=== PATIENT | female | born 1990 | race Caucasian/White ===

== ENCOUNTER 2022-03-23 18:27 | Inpatient (IN) | payer BC ==
[~2022-03-23 18:27] MED LIST: Bupivacaine 0.25% HCL 30 ML VIAL ONE; Bupivacaine HCl 0.5%/Epinephrine 1:200,000/PF 30 ml Vial ONE
[2022-03-23 19:06] VITALS: BMI 35.0
[2022-03-23] MEDS ORDERED: Misoprostol 100 MCG TAB ONE (20:12)
[2022-03-23] MEDS: Misoprostol 100 MCG TAB PO SCH (20:15)
[2022-03-23] MEDS ORDERED: Ibuprofen 800 MG TAB PO PRN (21:04)
[2022-03-23] MEDS ORDERED: Promethazine HCl 25 MG/ML VIAL IM PRN ×2 (21:04→23:41)
[2022-03-23] MEDS ORDERED: Lidocaine 1% (PF) 30 ML VIAL SC PRN (21:04)
[2022-03-23] MEDS ORDERED: Misoprostol 200 MCG TAB PR PRN (21:04)
[2022-03-23] MEDS ORDERED: HYDROcodone/Acetaminophen 5/325 mg Tablet PO PRN ×2 (21:04)
[2022-03-23] MEDS ORDERED: Methylergonovine 0.2 MG/ML VIAL IM PRN (21:04)
[2022-03-23] MEDS ORDERED: hydrALAZINE 20 MG/ML VIAL SLOW IVP PRN (21:04)
[2022-03-23] MEDS ORDERED: Ondansetron PF 4 MG/2 ML Vial IVP PRN ×2 (21:04→23:41)
[2022-03-23] MEDS ORDERED: NS w/ Oxytocin 30 units 500 ML IV SCH (21:15)
[2022-03-23] MEDS ORDERED: Lactated Ringer's 1,000 ML IV SCH (21:15)
[2022-03-23 21:23] LABS: Hemoglobin 12.2 g/dL (12.0-15.5); Mean Corpuscular HGB CONC 33.8 g/dL (32.0-36.0); Mean Corpuscular Hemoglobin 27.7 pg (27.0-33.0); Mean Platelet Volume 12.8 fl (7.4-10.4); Platelet Count 282 10x3/uL (150-450); RBC Distribution Width 14.9 % (11.5-14.5); White Blood Cell (WBC) Count 10.9 10x3/uL (3.5-10.5)
[2022-03-23 21:48] LABS: Syphilis Antibody Nonreactive (Nonreactive); Syphilis Antibody Index 0.03 S/CO (<1.00 Non-Reactive)
[2022-03-23 21:57] LABS: ALT (SGPT) 27 U/L (8-55); AST (SGOT) 23 U/L (5-34); Albumin 3.6 g/dL (3.5-5.0); Alkaline Phosphatase 339 U/L (40-110); Anion Gap 16 mmol/L (10-20); BUN (Urea Nitrogen) 11 mg/dL (7.0-18.7); Bilirubin, Total 0.3 mg/dL (0.2-1.2); Calc. Creatinine Clearance 167 mL/min (70-130); Calcium 9.2 mg/dL (7.8-10.44); Carbon Dioxide 18 mmol/L (22-29); Chloride 107 mmol/L (98-107); Estimated GFR 103; Globulin 3.1 g/dL (2.4-3.5); Glucose 89 mg/dL (70-105); Potassium 4.3 mmol/L (3.5-5.1); Protein, Total 6.7 g/dL (6.0-8.3); Sodium 137 mmol/L (136-145)
[2022-03-23 22:31] LABS: HBSAg Index 0.25 S/CO (0-0.99); Hep B Surf Ag Non-Reactive S/CO (NonReactive)
[2022-03-23] MEDS ORDERED: Fentanyl 2 mcg/Bup 0.1% Cadd 100 ML ONE (23:07)
[2022-03-23 23:27] LABS: SARS-CoV-2 NAA Rapid Test Not Detected (NotDetected)
[2022-03-23] MEDS ORDERED: Acetaminophen 325 MG TAB PO PRN (23:41)
[2022-03-23] MEDS ORDERED: Moisturizing Cream (Eucerin) 113 GM JAR TOP PRN (23:41)
[2022-03-23] MEDS ORDERED: Lactated Ringer's 500 ML IV PRN (23:41)
[2022-03-23] MEDS ORDERED: diphenhydrAMINE 50 MG/ML VIAL IVP PRN (23:41)
[2022-03-23] MEDS ORDERED: ePHEDrine Sulfate 50 MG/10 ML VIAL SLOW IVP PRN (23:41)
[2022-03-23] MEDS ORDERED: Naloxone HCl 0.4 mg/ml Vial IVP PRN ×2 (23:41)
[2022-03-23] MEDS ORDERED: Communication Order-Pharmacy FS SCH (23:45)
[2022-03-23] MEDS ORDERED: Fentanyl 2 mcg/Bupivacaine 0.1% Cassette 100 ML EPIDURAL SCH (23:45)
[2022-03-24] MEDS: NS w/ Oxytocin 30 units 500 ML IV SCH ×2 (00:47→08:27)
[2022-03-24] MEDS ORDERED: Fentanyl 100 MCG/2 ML VIAL ONE (04:07)
[2022-03-24] MEDS ORDERED: HYDROcodone/Acetaminophen 5/325 mg Tablet PO PRN ×2 (08:25)
[2022-03-24] MEDS ORDERED: Misoprostol 200 MCG TAB VAG PRN (08:25)
[2022-03-24] MEDS ORDERED: Benzocaine-Menthol 82.5 ML CAN TOP PRN (08:25)
[2022-03-24] MEDS ORDERED: hydrALAZINE 20 MG/ML VIAL SLOW IVP PRN (08:25)
[2022-03-24] MEDS ORDERED: Lanolin Ointment 7 GM TUBE TOP PRN (08:25)
[2022-03-24] MEDS ORDERED: Bisacodyl 10 MG SUPP PR PRN (08:25)
[2022-03-24] MEDS ORDERED: Ondansetron PF 4 MG/2 ML Vial IVP PRN (08:25)
[2022-03-24] MEDS ORDERED: Methylergonovine 0.2 MG/ML VIAL IM PRN (08:25)
[2022-03-24] MEDS ORDERED: Milk Of Magnesia 30 ML UDCUP PO PRN (08:25)
[2022-03-24] MEDS ORDERED: NS w/ Oxytocin 30 units 500 ML IV SCH (08:25)
[2022-03-24] MEDS ORDERED: Ferrous Sulfate 325 MG TAB PO SCH (10:00)
[2022-03-24] MEDS: Ibuprofen 800 MG TAB PO SCH ×2 (13:05→21:56)
[2022-03-24] MEDS: Docusate 100 MG CAP PO SCH ×2 (13:05→21:56)
[2022-03-24] MEDS: Prenatal Vitamin 1 TAB PO SCH (13:05)
[2022-03-24] MEDS: Ferrous Sulfate 325 MG TAB PO SCH (17:11)
[2022-03-25] MEDS: Ibuprofen 800 MG TAB PO SCH ×3 (05:28→22:17)
[2022-03-25] MEDS: Ferrous Sulfate 325 MG TAB PO SCH (07:18)
[2022-03-25] MEDS: Misoprostol 100 MCG TAB PO SCH (07:19)
[2022-03-25] MEDS: Docusate 100 MG CAP PO SCH ×2 (08:34→22:17)
[2022-03-25] MEDS: Prenatal Vitamin 1 TAB PO SCH (08:34)
[2022-03-26] MEDS: Ibuprofen 800 MG TAB PO SCH (05:24)
[2022-03-26 08:14] VITALS: BP 157/88; TEMP 98.2
[2022-03-26] MEDS: Ferrous Sulfate 325 MG TAB PO SCH (09:13)
[2022-03-26] MEDS: Prenatal Vitamin 1 TAB PO SCH (09:14)
[2022-03-26] MEDS: Docusate 100 MG CAP PO SCH (09:14)
[2022-03-27] MEDS ORDERED: Boostrix 0.5 ML (Tdap) VIAL (>/=7 yrs of age) IM ONE (08:25)
== END 2022-03-26 14:10 | disposition home or self-care (01) | DRG 807 ==
LOC: CSHLD 18:27 → CSHPED 03-24 10:30
PROVIDERS: ADMIT Obstetrics & Gynecology; ATTEND Obstetrics & Gynecology
PROC: 10E0XZZ Delivery of Products of Conception, External Approach (ICD-10-PCS; principal; 2022-03-24)
PROC: 0HQ9XZZ Repair Perineum Skin, External Approach (ICD-10-PCS; 2022-03-24)
DX: O42.02 Full-term premature rupture of membranes, onset of labor within 24 hours of rupture (principal); Z37.0 Single live birth; Z3A.38 38 weeks gestation of pregnancy; Z20.822 Contact with and (suspected) exposure to COVID-19; F41.9 Anxiety disorder, unspecified; E66.9 Obesity, unspecified; O99.344 Other mental disorders complicating childbirth; O99.214 Obesity complicating childbirth; O32.6XX0 Maternal care for compound presentation, not applicable or unspecified; O70.0 First degree perineal laceration during delivery
CPT/HCPCS: 51702; 80053; 85027; 86780; 86850; 86900; 86901; 87340; J2590; J3010; S0020; U0002